=== PATIENT | female | born 1965 | race Caucasian/White ===

== ENCOUNTER → 2024-09-18 16:53 | Outpatient (REF) | payer BC, SELFPAY | LOC: WDC 16:53 | PROVIDERS: ATTENDING PHYSICIAN Family Medicine | DX: Z12.31 Encounter for screening mammogram for malignant neoplasm of breast (principal) | CPT/HCPCS: 77063; 77067 ==

== ENCOUNTER → 2025-10-17 18:04 | Outpatient (REF) | payer BC, SELFPAY | LOC: WDC 18:04 | PROVIDERS: ATTENDING PHYSICIAN Family Medicine | DX: Z12.39 Encounter for other screening for malignant neoplasm of breast (principal) | CPT/HCPCS: 77063; 77067 ==